=== PATIENT | female | born 1990 | race American Indian/Alaskan Native ===

== ENCOUNTER 2018-08-25 05:43 | Emergency (ER) | payer OTHER ==
[2018-08-25 05:54] VITALS: BP 150/99
[2018-08-25] MEDS ORDERED: ULTRAM PO ONE (06:06)
[2018-08-25] MEDS ORDERED: TRIMOX PO ONE (06:06)
--- NOTE | 2018-08-25 06:10 | Emergency Department Report ---
ED ENT HPI - General Chief complaint: Dental/Oral Stated complaint: TOOTHACHE Time Seen by Provider: 08/25/18 06:06 Source: patient Mode of arrival: Ambulatory Limitations: No Limitations - History of Present Illness Initial comments: Patient is a 27-year-old -[place] female who presents for dental pain patient has a history of dental caries for the past 2 months patient has been unable to see dentist pain is described as 5/10 aching pain is exacerbated by hot and cold stimuli . NSAIDs however patient is out of NSAIDs for the past week patient is tolerating by mouth intake on the opposite side of dental pain there is no facial or gum swelling no pain no ear pain no fever no chills no nausea vomiting no dizziness or lightheadedness MD complaint: tooth pain Onset/Timin -: month(s) Location: tooth # (32) Severity: moderate Severity scale (0 -10): 5 Quality: aching Consistency: constant Improves with: NSAID Worsens with: other (hot and cold stimuli ) Context- Dental: history of dental caries, poor dental care Associated Symptoms: toothache - Related Data Previous Rx's Medication Instructions Recorded Last Taken Type Amoxicillin 500 mg PO TID 10 Days #30 capsule 08/25/18 Unknown Rx Chlorhexidine Mouthwash [Peridex] 15 ml MM BID #1 bottle 08/25/18 Unknown Rx traMADol [Ultram 50 MG tab] 50 mg PO Q6HR PRN #12 tablet 08/25/18 Unknown Rx Allergies Allergy/AdvReac Type Severity Reaction Status Date / Time No Known Allergies Allergy Verified 08/25/18 05:48 ED Dental HPI - General Chief complaint: Dental/Oral Stated complaint: TOOTHACHE Time Seen by Provider: 08/25/18 06:06 Source: patient Mode of arrival: Ambulatory Limitations: No Limitations - Related Data Previous Rx's Medication Instructions Recorded Last Taken Type Amoxicillin 500 mg PO TID 10 Days #30 capsule 08/25/18 Unknown Rx Chlorhexidine Mouthwash [Peridex] 15 ml MM BID #1 bottle 08/25/18 Unknown Rx traMADol [Ultram 50 MG tab] 50 mg PO Q6HR PRN #12 tablet 08/25/18 Unknown Rx Allergies Allergy/AdvReac Type Severity Reaction Status Date / Time No Known Allergies Allergy Verified 08/25/18 05:48 ED Review of Systems ROS: Stated complaint: TOOTHACHE Other details as noted in HPI Constitutional: denies: chills, fever Eyes: denies: eye pain, eye discharge, vision change ENT: dental pain Respiratory: denies: cough, shortness of breath, wheezing Cardiovascular: denies: chest pain, palpitations Endocrine: no symptoms reported Gastrointestinal: denies: abdominal pain, nausea, diarrhea Genitourinary: denies: urgency, dysuria, discharge Musculoskeletal: denies: back pain, joint swelling, arthralgia Skin: denies: rash, lesions Neurological: denies: headache, weakness, paresthesias Psychiatric: denies: anxiety, depression Hematological/Lymphatic: denies: easy bleeding, easy bruising ED Past Medical Hx - Past Medical History Previous Medical History?: No - Surgical History Past Surgical History?: No - Social History Smoking Status: Current Every Day Smoker Substance Use Type: None - Medications Home Medications: Home Medications Medication Instructions Recorded Confirmed Last Taken Type Amoxicillin 500 mg PO TID 10 Days #30 capsule 08/25/18 Unknown Rx Chlorhexidine Mouthwash [Peridex] 15 ml MM BID #1 bottle 08/25/18 Unknown Rx traMADol [Ultram 50 MG tab] 50 mg PO Q6HR PRN #12 tablet 08/25/18 Unknown Rx ED Physical Exam - General Limitations: No Limitations General appearance: alert, in no apparent distress - Head Head exam: Present: atraumatic, normocephalic - Eye Eye exam: Present: normal appearance, PERRL, EOMI Pupils: Present: normal accommodation - ENT ENT exam: Present: mucous membranes moist, TM's normal bilaterally, normal exte rnal ear exam - Expanded ENT Exam Expanded Ear exam: Present: normal external inspection Mouth exam: Absent: trismus Teeth exam: Present: dental caries (32), dental tenderness # Throat exam: Positive: normal inspection, other (uvula midline no stridor no exudate no lesions swelling airway is patent ). Negative: tonsillar erythema, tonsillomegaly, tonsillar exudate - Neck Neck exam: Present: normal inspection, full ROM. Absent: tenderness, meningismus, lymphadenopathy, thyromegaly - Respiratory Respiratory exam: Present: normal lung sounds bilaterally. Absent: respiratory distress, wheezes, stridor, chest wall tenderness - Cardiovascular Cardiovascular Exam: Present: regular rate, normal rhythm, normal heart sounds. Absent: systolic murmur, diastolic murmur, rubs, gallop - GI/Abdominal GI/Abdominal exam: Present: soft, normal bowel sounds. Absent: tenderness, bruit, hernia - Rectal Rectal exam: Present: deferred - Extremities Exam Extremities exam: Present: normal inspection - Back Exam Back exam: Present: normal inspection, full ROM - Neurological Exam Neurological exam: Present: alert, oriented X3, CN II-XII intact, normal gait, reflexes normal - Psychiatric Psychiatric exam: Present: normal affect, normal mood - Skin Skin exam: Present: warm, dry, intact, normal color. Absent: rash ED Course Vital Signs 08/25/18 05:45 Temperature 98.9 F Pulse Rate 72 Respiratory 18 Rate Blood Pressure 150/99 O2 Sat by Pulse 100 Oximetry ED Medical Decision Making - Medical Decision Making pain improved will tx for infected dental carries, plan, amoxicill, peridex, follow up with [facility] in 2-3 days pt verbalized agreement and understanding of discharge plan. Critical care attestation.: If time is entered above; I have spent that time in minutes in the direct care of this critically ill patient, excluding procedure time. ED Disposition Clinical Impression: Infected dental carries Disposition: - TO HOME OR SELFCARE Is pt being admited?: No Does the pt Need Aspirin: No Condition: Stable Instructions: Dental Caries (ED) Prescriptions: Amoxicillin 500 mg PO TID 10 Days #30 capsule Chlorhexidine Mouthwash [Peridex] 15 ml MM BID #1 bottle traMADol [Ultram 50 MG tab] 50 mg PO Q6HR PRN #12 tablet PRN Reason: Pain Referrals: [facility] [Outside] - 3-5 Days Forms: Work/School Release Form(ED) Time of Disposition: 06:15
== END 2018-08-25 06:21 | disposition home or self-care (01) ==
LOC: ED 05:43
DX: K02.9 Dental caries, unspecified (principal); F17.200 Nicotine dependence, unspecified, uncomplicated
CPT/HCPCS: 99282